=== PATIENT | male | born 1975 | race American Indian/Alaskan Native ===

== ENCOUNTER 2017-11-22 13:27 | Emergency (ER) | payer SELFPAY ==
[2017-11-22 14:02] VITALS: BP 135/87
[2017-11-22] MEDS ORDERED: TORADOL IM ONE (17:26)
--- NOTE | 2017-11-22 17:29 | Emergency Department Report ---
Chief Complaint: Extremity Injury, Lower Stated Complaint: LEG PAIN Time Seen by Provider: 11/22/17 17:06 - HPI History of Present Illness: The patient is a 42-year-old male who presents for left posterior buttocks pain radiating into the distal lower leg for the past 4 days. The patient denies blunt trauma to the back, fall, fever, chills, night sweats, saddle anesthesia, paresthesias, numbness or tingling in the legs, leg weakness, urine or bowel incontinence or retention, difficulty ambulating, or other focal neurological deficits. The patient also denies redness or swelling to the back, IV drug use, history of cancer. - Exam Vital Signs: Vital Signs 11/22/17 13:59 Temperature 98.5 F Pulse Rate 119 H Respiratory 18 Rate Blood Pressure 135/87 O2 Sat by Pulse 96 Oximetry MSE screening note: Focused history and physical exam performed. Due to findings the following was ordered: ED Disposition for MSE Condition: Stable
--- NOTE | 2017-11-22 17:44 | Emergency Department Report ---
ED Extremity Problem HPI - General Chief complaint: Extremity Injury, Lower Stated complaint: LEG PAIN Time Seen by Provider: 11/22/17 17:06 Source: patient Mode of arrival: Ambulatory Limitations: No Limitations - History of Present Illness Initial comments: 42-year-old male past medical history HIV presents with complaint of left-sided leg pain complaining of pain in left buttock radiating to left thigh. Denies nausea vomiting fever chills dysuria. Patient is ambulatory without assistance. Denies any trauma to leg. Denies any rash. Patient was screened and medically evaluated by Dr. Stevens before I took over case. Patient denies any saddle paresthesias bladder or bowel incontinence. Patient is ambulatory without assistance. MD Complaint: extremity pain Onset/Timin -: week(s) Location: left, lower extremity History of Same: No -: Yes myalgia Radiation: proximal Severity scale (0 -10): 5 Quality: aching Consistency: constant Improves with: nothing Worsens with: nothing Associated Symptoms: denies other symptoms - Related Data Previous Rx's Medication Instructions Recorded Last Taken Type Acetaminophen/Codeine [Tylenol 1 tab PO Q6H PRN #10 tab 11/22/17 Unknown Rx /Codeine # 3 tab] Naproxen 500 mg PO BID PRN #20 tablet 11/22/17 Unknown Rx Allergies Allergy/AdvReac Type Severity Reaction Status Date / Time sulfamethoxazole Allergy Unknown Verified 11/22/17 13:59 [From Bactrim] trimethoprim [From Bactrim] Allergy Unknown Verified 11/22/17 13:59 ED Review of Systems ROS: Stated complaint: LEG PAIN Other details as noted in HPI ED Past Medical Hx - Past Medical History Previous Medical History?: Yes Hx HIV: Yes Additional medical history: lung disease - Surgical History Past Surgical History?: Yes Hx Appendectomy: Yes Additional Surgical History: Breast reduction - Social History Smoking Status: Never Smoker Substance Use Type: Prescribed - Medications Home Medications: Home Medications Medication Instructions Recorded Confirmed Last Taken Type Acetaminophen/Codeine [Tylenol 1 tab PO Q6H PRN #10 tab 11/22/17 Unknown Rx /Codeine # 3 tab] Naproxen 500 mg PO BID PRN #20 tablet 11/22/17 Unknown Rx ED Physical Exam - General Limitations: No Limitations General appearance: alert, in no apparent distress - Head Head exam: Present: atraumatic, normocephalic - Eye Eye exam: Present: normal appearance - ENT ENT exam: Present: mucous membranes moist - Neck Neck exam: Present: normal inspection - Respiratory Respiratory exam: Present: normal lung sounds bilaterally. Absent: respiratory distress - Cardiovascular Cardiovascular Exam: Present: regular rate, normal rhythm. Absent: systolic murmur, diastolic murmur, rubs, gallop - GI/Abdominal GI/Abdominal exam: Present: soft, normal bowel sounds - Rectal Rectal exam: Present: deferred - Extremities Exam Extremities exam: Present: normal inspection - Back Exam Back exam: Present: normal inspection - Neurological Exam Neurological exam: Present: alert, oriented X3 - Psychiatric Psychiatric exam: Present: normal affect, normal mood - Skin Skin exam: Present: warm, dry, intact, normal color. Absent: rash ED Course Vital Signs 11/22/17 13:59 Temperature 98.5 F Pulse Rate 119 H Respiratory 18 Rate Blood Pressure 135/87 O2 Sat by Pulse 96 Oximetry ED Medical Decision Making - Medical Decision Making A/P: Left-sided sciatica 1-naproxen, short course codeine 2-patient examined Ambulatory 3-patient seen by Dr. Stevens 4- no clinical signs of myositis at this time or compartment syndrome Critical care attestation.: If time is entered above; I have spent that time in minutes in the direct care of this critically ill patient, excluding procedure time. ED Disposition Clinical Impression: Sciatica, left side Disposition: DC-01 TO HOME OR SELFCARE Is pt being admited?: No Does the pt Need Aspirin: No Condition: Stable Instructions: Sciatica (ED) Prescriptions: Acetaminophen/Codeine [Tylenol /Codeine # 3 tab] 1 tab PO Q6H PRN #10 tab PRN Reason: Pain Naproxen 500 mg PO BID PRN #20 tablet PRN Reason: Pain Referrals: [facility] [Provider Group] - 3-5 Days Time of Disposition: 17:55
== END 2017-11-22 18:40 | disposition home or self-care (01) ==
LOC: ED 13:27
DX: M54.32 Sciatica, left side (principal); Z88.1 Allergy status to other antibiotic agents; Z88.2 Allergy status to sulfonamides
CPT/HCPCS: 96372; 99282; J1885